=== PATIENT | male | born 1985 | race Caucasian/White ===

== ENCOUNTER 2018-03-25 18:39 | Emergency (ER) | payer MEDICAID, OTHER ==
[2018-03-25] MEDS ORDERED: Hydrocortisone/Neomycin/Polymyxin B Ophth Susp 7.5 ML Bottle ONE (19:43)
--- NOTE | 2018-03-25 21:38 | ER ---
DATE SEEN: 03/25/2018 TIME SEEN: 1930 hours. CHIEF COMPLAINT: Right eye pain. HISTORY OF PRESENT ILLNESS: This is a 32-year-old male complaining of something entering the right eye around 1400 hours. He is vague and a poor historian. The circumstances are not clear, but he felt something in the right eye. He denies any direct trauma. Since that time, he has had a scratchy feeling on that eye, irritation and tearing, but no headache, nausea, vomiting. ALLERGIES: He has no known allergies. REVIEW OF SYSTEMS: Denies any fever or chills. PAST MEDICAL HISTORY: Consistent with history of drug abuse. PHYSICAL EXAMINATION: VITAL SIGNS: He has normal vital signs. EYES: Visual acuity is 20/70 on the right and 20/50 on the left. On eye exam, he has mild conjunctival redness on the right. Pupils are equal and reactive to light. I used a fluorescein dye to notice this 3 x 4 mm sized corneal abrasion on the 10 o'clock position. IMPRESSION: Corneal abrasion. PLAN: I sent him home on Cortisporin drops, 2 drops 3 times a day. I recommended that he see Dr. Anjelica Jimenez at the clinic tomorrow, possibly a patch or lens to protect the eye. If he is not able to get to her, he can see his primary care physician at the same day. /[id number] [address]GUYEN/ARNIEL
== END 2018-03-25 20:04 | disposition home or self-care (01) ==
LOC: FB.ED 18:39
DX: S05.01XA Injury of conjunctiva and corneal abrasion without foreign body, right eye, initial encounter (principal); X58.XXXA Exposure to other specified factors, initial encounter
CPT/HCPCS: 99283; A9270